=== PATIENT | male | born 1965 | race Caucasian/White ===

== ENCOUNTER 2023-12-14 13:50 | Emergency (ER) | payer BC, SELFPAY ==
[2023-12-14 13:52] VITALS: BP 166/96
[2023-12-14] MEDS: TORADOL 15 MG IV (14:08)
--- NOTE | 2023-12-14 14:08 | ED.GENMED ---
History of Present Illness
General
Chief Complaint: Flank Pain
Time Seen by Provider: 12/14/23 14:00
Travel History
Have you had any contact with someone who has COVID-19?: No
Do you have any symptoms of coronavirus? Fever > 100 degrees, chills, cough, shortness of breath, sore throat, loss of taste or smell, muscle aches, or headache?: No
History of Present Illness
History of Present Illness:
58-year-old male with history of hyperlipidemia presents to the emergency department for evaluation of left flank pain that began over the weekend and gradually worsened today. Pain is comparable to prior kidney stones. Pain radiates from the left
flank to the left pelvis. Denies any hematuria or dysuria. No fevers or chills. Has not taken any medication today for symptom control
Past History
Past History
ED Past Medical History: None
Social History
Tobacco: Non-smoker
Personal:
Living: with family
Employment: Employed
Review of Systems
Review of Systems
Allergies reviewed?: Yes
All Other Systems: ROS reviewed and negative except as documented in HPI and ROS
Phy Exam
Physical Exam
Physical Exam:
GEN: Appears uncomfortable, pacing about the room
Eyes: PERRLA, EOMs intact, no scleral icterus
HENT: NCAT, oral mucosa moist
Lungs: CTAB
Cardiac: RRR
Abdomen: S, NT, ND, NABS, no masses or hepatosplenomegaly
Neuro: AO x 3
MSK: No gross deformity or ecchymosis. No edema. No digital clubbing
Skin: No rashes, petechiae. Normal color, no pallor or jaundice.
Psych: Calm, cooperative, proper hygiene
Course
Orders/Labs/Results
Orders:
Orders
12/14/23 14:04
Ketorolac [Toradol] 15 mg IV NOW STA
12/14/23 14:05
Complete Blood Count/With Diff Urgent
Comprehensive Metabolic Panel Urgent
Urinalysis Reflex To Culture Urgent
Date Specimen was Collected: 12/14/23
Time Specimen was Collected: 14:00
Urine Microscopic Reflex Cult Urgent
12/14/23 14:09
Ketorolac [Toradol] 15 mg .ROUTE .STK-MED ONE
Abnormal Lab Results
12/14/23
14:05
MCH 31.5 H pg
(27.0-31.0)
MCHC 37.3 H g/dL
(33.0-37.0)
Absolute Monos (auto) 0.9 H 10^3/uL
(0.1-0.6)
Monocytes % 9.7 H %
(1.7-9.3)
BUN 23 H mg/dl
(9-20)
Glucose 121 H mg/dl
(70-99)
Ur Occult Blood Reflex 3+ A
(Negative)
Urine RBC 11-15 A /HPF
(0-2)
Urine Bacteria (Reflex) Few A
(Negative)
12/14/23 14:05
12/14/23 14:05
Vital Signs
Initial and Last Documented VS:
Initial Vital Signs
Temp Pulse Resp BP Pulse Ox
98.9 F 74 18 166/96 95
12/14/23 13:52 12/14/23 13:52 12/14/23 13:52 12/14/23 13:52 12/14/23 13:52
Last Documented Vital Signs
Temp Pulse Resp BP Pulse Ox
98.9 F 70 16 138/86 98
12/14/23 13:52 12/14/23 15:01 12/14/23 15:01 12/14/23 15:01 12/14/23 15:01
MDM/Problems Addressed
MDM/Problems Addressed:
Patient noted to have hematuria on labs with unremarkable renal function. His pain essentially resolved after IV Toradol. Urinalysis bland otherwise with no evidence for UTI. At this time do not feel there is any indication for imaging as the
patient's pain is drastically improved, do not have a high suspicion for a large unpassable stone particular given the migratory nature of the patient's pain. Supportive care discussed, ED return parameters encouraged should pain worsen
*Critical Care Note
Total Time (30-74mins, 75-104mins- exclusive of procedures): Not Applicable
ED Attending Note
-
Portions of this chart may have been created with voice recognition software.� Occasional wrong word or��sound alike� substitutions may have occurred due to the inherent limitations of voice recognition software.
Discharge Plan
Departure
Patient Disposition: Home (Routine Discharge)
Date of Disposition: 12/14/23
Time of Disposition: 14:56
Patient with high blood pressure during this ER visit?: No
Discharge Problem:
Ureterolithiasis
Instructions: Kidney Stones (DC)
Prescriptions:
New
diclofenac sodium 75 mg tablet,delayed release (DR/EC)
75 mg PO BID PRN (Reason: Pain) Qty: 20 0RF
tamsulosin [Flomax] 0.4 mg capsule
0.4 mg PO HS Qty: 10 0RF
oxycodone 5 mg tablet
5 mg PO Q8H PRN (Reason: Pain) Qty: 10 0RF
No Action
clindamycin HCl 300 MG capsule
300 mg PO Q6H Qty: 40 0RF
indomethacin 25 MG capsule
25 mg PO TID Qty: 20 0RF
Rx Instructions:
with food
hydrocodone-acetaminophen [Vicodin] 1 EACH tablet
1 ea PO Q6H PRN (Reason: pain) Qty: 10 0RF
Referrals:
Aamir Isaacs MD [Active] -
Billy Juarez MD [Family Provider] -
Activity Restrictions/Additional Instructions:
Return to the ER if you develop uncontrolled pain or fevers
Your stone may pass at any point in the next several days. Please take the medications as prescribed. You may take [id number] Tylenol/acetaminophen however do not take ibuprofen or Motrin
Follow-up with urology as needed to discuss prevention of future stones
Interventions
Interventions:
*Risk Screen - Suicide Last Done: 12/14/23 13:52
*General Assessment Last Done: 12/14/23 13:52
*Neglect/Abuse Screening Last Done: 12/14/23 13:52
ED- Fall Risk Assessment Last Done: 12/14/23 15:01
*ED COVID-19 Vaccine History Last Done: 12/14/23 13:52
*Nursing Disposition Last Done: 12/14/23 15:01
IS-Etsuvk-Vjlvinhtpr Assessment Last Done: 12/14/23 14:11
ED-Male Genitourinary Assessment Last Done: 12/14/23 14:11
Discharge Date and Time
Discharge Date/Time: 12/14/23 15:12
[2023-12-14 14:13] LABS: % Basophils 0.3 % (0-2); % Eosinophils 0.8 % (0-6); % Immature Granulocytes 0.2 % (0-0.5); % Lymphocytes 35.3 % (20.5-51.1); % Monocytes 9.7 % (1.7-9.3); % Neutrophils 53.7 % (42.2-75.2); Absolute Eosinophils 0.1 10^3/uL (0-0.7); Absolute Lymphocytes 3.1 10^3/uL (1.2-3.4); Absolute Monocytes 0.9 10^3/uL (0.1-0.6); Absolute Neutrophils 4.7 10^3/uL (1.4-6.5); Hematocrit 41.8 % (39.0-52.0); Hemoglobin 15.6 g/dL (13.0-18.0); Mean Corp Hgb Conc. 37.3 g/dL (33.0-37.0); Mean Corpuscular Hgb 31.5 pg (27.0-31.0); Mean Corpuscular Volume 84.4 fL (80.0-94.0); Mean Platelet Volume 9.4 fL (7.4-10.4); Nucleated Red Blood Cells % 0 % (-); Platelet Count 235 10^3/uL (130-400); Red Blood Cell Count 4.95 10^6/uL (4.70-6.10); Red Cell Dist. Width 12.1 % (11.5-14.5); White Blood Cell Count 8.8 10^3/uL (4.8-10.8)
[2023-12-14 14:19] LABS: Urine Albumin Trace (Neg - Trace); Urine Bilirubin Negative (Negative); Urine Character Clear (Clear); Urine Color Yellow; Urine Glucose Negative (Negative); Urine Ketone Negative (Negative); Urine Leukocyte Negative (Negative); Urine Nitrite Negative (Negative); Urine Occult Blood 3+ (Negative); Urine Specific Gravity 1.025 (<1.030); Urine Urobilinogen Negative (Neg - 1+)
[2023-12-14 14:26] LABS: ALT (SGPT) 40 U/L (0-50); AST (SGOT) 36 U/L (17-59); Albumin 4.5 g/dl (3.5-5.0); Alkaline Phosphatase 78 U/L (38-126); Blood Urea Nitrogen 23 mg/dl (9-20); Carbon Dioxide 24 mmol/L (22-30); Chloride 102 mmol/L (98-107); Glucose 121 mg/dl (70-99); Potassium 4.4 mmol/L (3.5-5.1); Sodium 138 mmol/L (135-145); Total Bilirubin 1.1 mg/dl (0.2-1.3); Total Protein 7.3 g/dl (6.3-8.2); eGFR > 60.00
[2023-12-14 15:01] VITALS: BP 138/86
[2023-12-14 15:11] LABS: Urine Mucus Many
[2023-12-14 15:12] LABS: Urine Amorphous Seen
[2023-12-14 15:13] LABS: Urine Bacteria Few (Negative); Urine White Cell 0-2 /HPF (0-5)
== END 2023-12-14 15:12 | disposition home or self-care (01) ==
LOC: EMR 13:50
PROVIDERS: Physician Assistant; EMERGENCY PHYSICIAN Emergency Medicine; FAMILY PHYSICIAN Internal Medicine
DX: N20.1 Calculus of ureter (principal)
CPT/HCPCS: 99284; 96374; 80053; 81003; 81015; 85025